=== PATIENT | male | born 1965 | race Caucasian/White ===

== ENCOUNTER 2016-09-30 10:32 | Emergency (ER) | payer OTHER ==
[~2016-09-30] VITALS: Ht 170.2 cm; Wt 79.0 kg
[2016-09-30 10:35] VITALS: Ht 170.2 cm; Wt 79.0 kg
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
[2016-09-30] MEDS ORDERED: KETOROLAC 15 MG INJ IM ONE (11:00)
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
[2016-09-30] MEDS ORDERED: IBUP800T25 PO (12:13)
[2016-09-30] MEDS ORDERED: LEVO137T3 PO (12:16)
[2016-09-30] MEDS ORDERED: ALBU18HF INHALATION (12:16)
[2016-09-30] MEDS ORDERED: LOSA100T7 PO (12:17)
[2016-09-30] MEDS ORDERED: MONT10TA24 PO (12:17)
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
[2016-09-30 14:46] VITALS: BP 157/62; PULSE 62; RESP 19
== END 2016-09-30 14:52 | disposition home or self-care (01) ==
LOC: E/R 10:32
DX: S13.9XXA Sprain of joints and ligaments of unspecified parts of neck, initial encounter (principal); S29.019A Strain of muscle and tendon of unspecified wall of thorax, initial encounter; S33.5XXA Sprain of ligaments of lumbar spine, initial encounter; I10 Essential (primary) hypertension; V49.49XA Driver injured in collision with other motor vehicles in traffic accident, initial encounter
CPT/HCPCS: 71010; 72072; 72100; 72125; 96372; J1885; Z7502